=== PATIENT | male | born 1995 | race African-American/Black ===

== ENCOUNTER 2017-02-16 00:22 | Emergency (ER) | payer OTHER ==
[~2017-02-16 00:22] MED LIST: RISP37.5P IM
[2017-02-16 00:23] VITALS: BP 142/80; PULSE 90; RESP 16; TEMP 97.7; O2SAT 98
--- NOTE | 2017-02-16 03:29 | PD ---
HPI Chief Complaint: Psychiatric Symptoms Time Seen by Provider: 03:29 Travel History International Travel<30 days: No Contact w/Intl Traveler<30days: No Traveled to known affect area: No History of Present Illness HPI 21-year-old male with history of bipolar disorder and he believes schizoaffective disorder presents to the emergency department for evaluation. Patient states that he is here "for my three-day evaluation." When asked what type of evaluation, the patient states "for my bipolarness." Patient states he has been faithfully receiving his biweekly injections for his bipolar. He denies any suicidal or homicidal ideations. Denies any acute medical needs. Patient has no other symptoms to report. PFSH Past Medical History ADHD: Yes Bipolar Disorder: Yes Weight (Kg): 3 Cancer: No Cardiovascular Problems: No Diabetes: No Diminished Hearing: No Headaches: No Psychiatric: Yes Immunizations Current: Yes Schizophrenia: Yes Seizures: No Tetanus Vaccination: Unknown Influenza Vaccination: No Past Surgical History Surgical History: No Previous Surgery Section: No Social History Alcohol Use: Yes (OCCASIONAL) Tobacco Use: Yes (OCCASIONAL) Substance Use: Yes Allergies-Medications (Allergen,Severity, Reaction): Coded Allergies: No Known Allergies (Verified , 02/16/17) Reported Meds & Prescriptions Reported Meds & Active Scripts Active Risperdal Consta Inj (Risperidone) 37.5 Mg Inj 37.5 Mg IM Q14D Review of Systems Except as stated in HPI: all other systems reviewed are Neg Physical Exam Narrative GENERAL: Well-nourished, well-developed patient, ambulatory and in no acute distress SKIN: Focused skin assessment warm/dry. HEAD: Normocephalic. EYES: No scleral icterus. No injection or drainage. NECK: Supple, trachea midline. No JVD or lymphadenopathy. CARDIOVASCULAR: Regular rate and rhythm without murmurs, gallops, or rubs. RESPIRATORY: Breath sounds equal bilaterally. No accessory muscle use. GASTROINTESTINAL: Abdomen soft, non-tender, nondistended. MUSCULOSKELETAL: No cyanosis, or edema. BACK: Nontender without obvious deformity. No CVA tenderness. Data Data Last Documented VS Vital Signs Date Time Temp Pulse Resp B/P Pulse Ox O2 Delivery O2 Flow Rate FiO2 02/16/17 02:43 20 02/16/17 00:23 97.7 90 142/80 98 Room Air Orders Psych Screen (02/16/17 02:37) [facility] Medical Decision Making Medical Screen Exam Complete: Yes Emergency Medical Condition: Yes Medical Record Reviewed: Yes Differential Diagnosis Mood disorder versus personality disorder versus adjustment reaction disorder versus normal exam Narrative Course 21-year-old male presents to the emergency department requesting his 3 day evaluation for his psychiatric illness. Patient denies suicidal or homicidal ideations. He appears well and without distress. Psych Screen is ordered however labs will be ordered at this time. Patient is medically cleared to undergo psych screen for further evaluation and disposition. Diagnosis Primary Impression: Mood disorder Condition: Stable Marly Myers February 16, 2017 03:29
[2017-02-16 06:01] VITALS: BP 128/75; PULSE 75; RESP 18; O2SAT 97
[2017-02-16 10:07] VITALS: BP 128/75; PULSE 75; RESP 18; O2SAT 97
[2017-02-25] MEDS ORDERED: RISP37.5P IM ×2 (09:25→09:26)
[2017-03-11] MEDS ORDERED: RISP37.5P IM ×2 (08:59→11:34)
[2017-03-26] MEDS ORDERED: RISP37.5P IM (08:22)
== END 2017-02-16 11:50 | disposition home or self-care (01) ==
LOC: NEPD 00:22 → NEPJ 11:50
DX: F39 Unspecified mood [affective] disorder (principal); Z72.0 Tobacco use
CPT/HCPCS: 99283

== ENCOUNTER 2018-06-29 14:24 | Inpatient (IN) ==
--- NOTE | 2018-06-29 15:27 | ED ---
HPI General Chief Complaint: Psychiatric Symptoms Stated Complaint: Psych eval Time Seen by Provider: 06/30/18 12:00 Source: patient Mode of arrival: ambulatory Limitations: other (Hallucinations) History of Present Illness HPI Narrative: TP is a 23 year old male who is here today in psychiatric area of ER by himself. He was (possibly) brought in by a friend. He is awake and alert, but unable to really understand what he is saying. He'll look at me and speak, but it does not make sense. Just states "I have someone bad in my head and I need to get him out". Will not say if suicidal or homicidal. MD complaint: altered mental status (Hallucinations) Onset (ago): unknown History of same: Yes Relieving factors: medication Exacerbating factors: none Context: other (Unknown) Treatments prior to arrival: none Related Data Home Medications Medication Instructions Recorded Confirmed risperidone microspheres 37.5 mg IM Q2W 06/29/18 06/29/18 [Risperdal Consta] Allergies Allergy/AdvReac Type Severity Reaction Status Date / Time No Known Allergies AdvReac Unknown Uncoded 10/19/17 13:09 Review of Systems ROS Unobtainable ROS Unobtainable: unobtainable due to mental condition PMFSH Social History Social History Substance History: Active Abuse Second Hand Smoke Exposure: No Smoking Status: Never smoker How Often Do You Have a Drink Containing Alcohol: Never Recent Travel in [facility] within the Last 8 Weeks: No Recent Out of Country Travel within the Last 8 Weeks: No Exam Narrative Exam Narrative: GENERAL: Pt awake, alert, disoriented. Speech somewhat garbled, but able to understand somewhat. SKIN: Focused skin assessment warm/dry. Bandaide on bridge of nose. HEAD: Atraumatic. Normocephalic. EYES: Pupils equal and round. No scleral icterus. No injection or drainage. ENT: No nasal bleeding or discharge. Mucous membranes pink and moist. NECK: Trachea midline. No JVD. CARDIOVASCULAR: Regular rate and rhythm. No murmur appreciated. RESPIRATORY: No accessory muscle use. Clear to auscultation. Breath sounds equal bilaterally. GASTROINTESTINAL: Abdomen soft, non-tender, nondistended. Hepatic and splenic margins not palpable. MUSCULOSKELETAL: No obvious deformities. No clubbing. No cyanosis. No edema. NEUROLOGICAL: Awake and alert. No obvious cranial nerve deficits. Motor grossly within normal limits. Normal speech. PSYCHIATRIC: Appropriate mood and affect; insight and judgment normal. Course Initial Documented Vital Signs Temperature 98.1 F 06/29/18 14:32 Pulse Rate 109 H 06/29/18 14:32 Respiratory Rate 16 06/29/18 14:32 Blood Pressure 172/107 H 06/29/18 14:32 Pulse Oximetry 99 06/29/18 14:32 Last Documented Vital Signs Temperature 98 F 07/03/18 06:50 Pulse Rate 75 07/03/18 06:50 Respiratory Rate 16 07/03/18 06:50 Blood Pressure 110/56 L 07/03/18 06:50 Pulse Oximetry 97 07/03/18 06:50 Medical Decision Making MDM Narrative Medical decision making narrative: Patient here today for hallucinations. He states he has been getting injections but unable to find record of this. He will look at me and try to speak but is difficult to understand what he is saying. He did say that he has something bad in his head and he needs to have it. Will not say if he is suicidal or homicidal at this time. Will order psychiatric screening and lab work. UA (+) for THC, (+) protein, (+) ketones, (+) mucus, but otherwise negative for uti 1800-Pt becoming agitated and combative, hyperfocused on going home. Injections of Benadryl 50mg, Ativan 2mg, and Zyprexa 10mg IM given to patient. 1830-Pt much more calm and less agitated, he ate dinner and states hes aware he needs to be here and to stay for now until he can be seen by psych. Medical Screen Exam Complete: Yes Emergency Medical Condition: Yes Differential Diagnosis Differential Diagnosis: Suicidal ideation, homicidal ideation, Schizophrenia, hallucinations Lab Data Lab results reviewed: Yes I reviewed the patient's lab results. Result diagrams: 07/02/18 08:09 07/02/18 08:09 Lab Results 06/29/18 06/29/18 06/29/18 Range/Units 15:10 15:10 20:15 WBC 11.3 H (4.0-11.0) th/mm3 RBC 4.64 (4.50-5.90) mil/mm3 Hgb 14.1 (13.0-17.0) gm/dL Hct 41.3 (39.0-51.0) % MCV 89.0 (80.0-100.0) fL MCH 30.4 (27.0-34.0) pg MCHC 34.1 (32.0-36.0) % RDW 12.7 (11.6-17.2) % Plt Count 240 (150-450) th/mm3 MPV 9.0 (7.0-11.0) fL Neut % (Auto) 68.4 (16.0-70.0) % Lymph % (Auto) 19.7 (9.0-44.0) % [place] % (Auto) 8.8 H (0.0-8.0) % Eos % (Auto) 2.6 (0.0-4.0) % Baso % (Auto) 0.5 (0.0-2.0) % Neut # (Auto) 7.8 H (1.8-7.7) th/mm3 Lymph # (Auto) 2.2 (1.0-4.8) th/mm3 [place] # (Auto) 1.0 H (0.0-0.9) th/mm3 Eos # (Auto) 0.3 (0.0-0.4) th/mm3 Baso # (Auto) 0.1 (0.0-0.2) th/mm3 WBC Differential . Differential Comment Auto diff final Sodium (136-145) meq/L Potassium (3.5-5.1) meq/L Chloride (98-107) meq/L Carbon Dioxide (21.0-32.0) meq/L Anion Gap (5-15) meq/L BUN (7-18) mg/dL Creatinine (0.60-1.30) mg/dL Estimated GFR (>89) mL/min Random Glucose (74-106) mg/dL Hemoglobin A1c (4.3-6.0) % Calcium (8.5-10.1) mg/dL Magnesium (1.5-2.5) mg/dL Total Bilirubin (0.2-1.0) mg/dL AST (15-37) U/L ALT (12-78) U/L Alkaline Phosphatase (45-117) U/L Total Protein (6.4-8.2) g/dL Albumin (3.4-5.0) g/dL Triglycerides (42-150) mg/dL Cholesterol (120-200) mg/dL LDL Cholesterol, Calc (0-99) mg/dL HDL Cholesterol (40.0-60.0) mg/dL Cholesterol/HDL Ratio Ratio TSH (0.358-3.740) uIU/mL Urine Color Yellow (Yellw/Straw) Urine Clarity Hazy H (Clear) Urine pH 5.0 (5.0-8.5) Ur Specific [place] 1.031 (1.002-1.035) Urine Protein 30 H (Neg-Trace) mg/dL Urine Glucose (UA) Negative (Negative) mg/dL Urine Ketones Trace H (Negative) mg/dL Urine Occult Blood Negative (Negative) Urine Nitrate Negative (Negative) Urine Bilirubin Negative (Negative) Urine Urobilinogen 2.0 H (Less than 2) mg/dL Ur Leukocyte Esterase Negative (Negative) Urine WBC Less than 1 (0-5) /hpf Ur Squamous Epith Cells <1 (0-5) /hpf Hyaline Casts 4 (0-3) /lpf Urine Mucus Few H (Occasional) /lpf Micro UA Comment Culture not ind Ur Microscopic Review Not Reportable Urine Culture Comments Culture not ind Urine Opiates Screen Neg (Neg) Ur Barbiturates Screen Neg (Neg) Ur Amphetamines Screen Neg (Neg) U Benzodiazepines Scrn Neg (Neg) Urine Cocaine Screen Neg (Neg) U Cannabinoids Screen Pos H (Neg) Serum Alcohol (0-5) mg/dL 06/29/18 07/02/18 07/02/18 Range/Units 20:15 08:09 08:09 WBC 6.6 (4.0-11.0) th/mm3 RBC 4.75 (4.50-5.90) mil/mm3 Hgb 14.6 (13.0-17.0) gm/dL Hct 43.4 (39.0-51.0) % MCV 91.3 (80.0-100.0) fL MCH 30.7 (27.0-34.0) pg MCHC 33.6 (32.0-36.0) % RDW 13.1 (11.6-17.2) % Plt Count 247 (150-450) th/mm3 MPV 8.4 (7.0-11.0) fL Neut % (Auto) 68.4 (16.0-70.0) % Lymph % (Auto) 22.7 (9.0-44.0) % [place] % (Auto) 5.9 (0.0-8.0) % Eos % (Auto) 2.4 (0.0-4.0) % Baso % (Auto) 0.6 (0.0-2.0) % Neut # (Auto) 4.5 (1.8-7.7) th/mm3 Lymph # (Auto) 1.5 (1.0-4.8) th/mm3 [place] # (Auto) 0.4 (0.0-0.9) th/mm3 Eos # (Auto) 0.2 (0.0-0.4) th/mm3 Baso # (Auto) 0.0 (0.0-0.2) th/mm3 WBC Differential . Differential Comment Auto diff final Sodium 139 (136-145) meq/L Potassium 3.3 L (3.5-5.1) meq/L Chloride 102 (98-107) meq/L Carbon Dioxide 27.0 (21.0-32.0) meq/L Anion Gap 10 (5-15) meq/L BUN 16 (7-18) mg/dL Creatinine 1.14 (0.60-1.30) mg/dL Estimated GFR Greater than 89 (>89) mL/min Random Glucose 99 (74-106) mg/dL Hemoglobin A1c 5.6 (4.3-6.0) % Calcium 9.2 (8.5-10.1) mg/dL Magnesium (1.5-2.5) mg/dL Total Bilirubin 0.5 (0.2-1.0) mg/dL AST 86 H (15-37) U/L ALT 66 (12-78) U/L Alkaline Phosphatase 77 (45-117) U/L Total Protein 7.6 (6.4-8.2) g/dL Albumin 3.7 (3.4-5.0) g/dL Triglycerides (42-150) mg/dL Cholesterol (120-200) mg/dL LDL Cholesterol, Calc (0-99) mg/dL HDL Cholesterol (40.0-60.0) mg/dL Cholesterol/HDL Ratio Ratio TSH 0.581 (0.358-3.740) uIU/mL Urine Color (Yellw/Straw) Urine Clarity (Clear) Urine pH (5.0-8.5) Ur Specific [place] (1.002-1.035) Urine Protein (Neg-Trace) mg/dL Urine Glucose (UA) (Negative) mg/dL Urine Ketones (Negative) mg/dL Urine Occult Blood (Negative) Urine Nitrate (Negative) Urine Bilirubin (Negative) Urine Urobilinogen (Less than 2) mg/dL Ur Leukocyte Esterase (Negative) Urine WBC (0-5) /hpf Ur Squamous Epith Cells (0-5) /hpf Hyaline Casts (0-3) /lpf Urine Mucus (Occasional) /lpf Micro UA Comment Ur Microscopic Review Urine Culture Comments Urine Opiates Screen (Neg) Ur Barbiturates Screen (Neg) Ur Amphetamines Screen (Neg) U Benzodiazepines Scrn (Neg) Urine Cocaine Screen (Neg) U Cannabinoids Screen (Neg) Serum Alcohol Less than 3 (0-5) mg/dL 07/02/18 Range/Units 08:09 WBC (4.0-11.0) th/mm3 RBC (4.50-5.90) mil/mm3 Hgb (13.0-17.0) gm/dL Hct (39.0-51.0) % MCV (80.0-100.0) fL MCH (27.0-34.0) pg MCHC (32.0-36.0) % RDW (11.6-17.2) % Plt Count (150-450) th/mm3 MPV (7.0-11.0) fL Neut % (Auto) (16.0-70.0) % Lymph % (Auto) (9.0-44.0) % [place] % (Auto) (0.0-8.0) % Eos % (Auto) (0.0-4.0) % Baso % (Auto) (0.0-2.0) % Neut # (Auto) (1.8-7.7) th/mm3 Lymph # (Auto) (1.0-4.8) th/mm3 [place] # (Auto) (0.0-0.9) th/mm3 Eos # (Auto) (0.0-0.4) th/mm3 Baso # (Auto) (0.0-0.2) th/mm3 WBC Differential Differential Comment Sodium 139 (136-145) meq/L Potassium 3.8 (3.5-5.1) meq/L Chloride 104 (98-107) meq/L Carbon Dioxide 27.4 (21.0-32.0) meq/L Anion Gap 8 (5-15) meq/L BUN 12 (7-18) mg/dL Creatinine 1.07 (0.60-1.30) mg/dL Estimated GFR Greater than 89 (>89) mL/min Random Glucose 112 H (74-106) mg/dL Hemoglobin A1c (4.3-6.0) % Calcium 9.1 (8.5-10.1) mg/dL Magnesium 2.3 (1.5-2.5) mg/dL Total Bilirubin (0.2-1.0) mg/dL AST (15-37) U/L ALT (12-78) U/L Alkaline Phosphatase (45-117) U/L Total Protein (6.4-8.2) g/dL Albumin (3.4-5.0) g/dL Triglycerides 57 (42-150) mg/dL Cholesterol 91 L (120-200) mg/dL LDL Cholesterol, Calc 49 (0-99) mg/dL HDL Cholesterol 30.4 L (40.0-60.0) mg/dL Cholesterol/HDL Ratio 2.99 Ratio TSH (0.358-3.740) uIU/mL Urine Color (Yellw/Straw) Urine Clarity (Clear) Urine pH (5.0-8.5) Ur Specific [place] (1.002-1.035) Urine Protein (Neg-Trace) mg/dL Urine Glucose (UA) (Negative) mg/dL Urine Ketones (Negative) mg/dL Urine Occult Blood (Negative) Urine Nitrate (Negative) Urine Bilirubin (Negative) Urine Urobilinogen (Less than 2) mg/dL Ur Leukocyte Esterase (Negative) Urine WBC (0-5) /hpf Ur Squamous Epith Cells (0-5) /hpf Hyaline Casts (0-3) /lpf Urine Mucus (Occasional) /lpf Micro UA Comment Ur Microscopic Review Urine Culture Comments Urine Opiates Screen (Neg) Ur Barbiturates Screen (Neg) Ur Amphetamines Screen (Neg) U Benzodiazepines Scrn (Neg) Urine Cocaine Screen (Neg) U Cannabinoids Screen (Neg) Serum Alcohol (0-5) mg/dL Discharge Plan Discharge Disposition Patient Disposition: 01 Discharge Home Discharge Order Discharge Orders: Discharge Order (Routine); Ordered 07/03/18 Ordered By: Angelique Aguirre Physicians Team ED Provider: Jim Velasquez ED Midlevel Provider: Angelique Aguirre Primary Care Provider: Primary Care Donna Lewis Attending Provider: Carlton Cornejo Other Providers: Xu Beaver Discharge Interventions Interventions: ED Discharge Assessment Last Done: 06/30/18 14:25 Vital Signs Last Done: 06/30/18 06:46 Status ED Status: Left Department Discharge Information Discharge Date/Time: 06/30/18 14:26
[2018-06-29 17:18] LABS: Bilirubin,Urine Negative (Negative); Clarity,Urine Hazy (Clear); Color,Urine Yellow (Yellw/Straw); Glucose,Urine (UA) Negative (Negative); Hyaline Casts,Urine 4 /lpf (0-3); Leukocyte Esterase,Urine Negative (Negative); Mucus,Urine Few /lpf (Occasional); Nitrite,Urine Negative (Negative); Specific Gravity,Urine 1.031 (1.002-1.035); Squamous Epithelial Cell,Urine <1 /hpf (0-5)
[2018-06-29 17:23] LABS: Amphetamine Screen,Urine Neg (Neg); Barbiturate Screen,Urine Neg (Neg); Cannabinoid Screen,Urine Pos (Neg); Cocaine Screen,Urine Neg (Neg)
[2018-06-29 17:28] LABS: Opiate Screen,Urine Neg (Neg)
[2018-06-29 21:27] LABS: Baso # (Auto) 0.1 th/mm3 (0.0-0.2); Baso % (Auto) 0.5 % (0.0-2.0); Eos # (Auto) 0.3 th/mm3 (0.0-0.4); Eos % (Auto) 2.6 % (0.0-4.0); Hematocrit 41.3 % (39.0-51.0); Hemoglobin 14.1 gm/dL (13.0-17.0); Lymph # (Auto) 2.2 th/mm3 (1.0-4.8); Lymph % (Auto) 19.7 % (9.0-44.0); Mean Corpuscular HGB Conc 34.1 % (32.0-36.0); Mean Corpuscular Hemoglobin 30.4 pg (27.0-34.0); Mono % (Auto) 8.8 % (0.0-8.0); Neut # (Auto) 7.8 th/mm3 (1.8-7.7); Neut % (Auto) 68.4 % (16.0-70.0); Platelet Count 240 th/mm3 (150-450); Red Blood Count 4.64 mil/mm3 (4.50-5.90); Red Cell Distribution Width 12.7 % (11.6-17.2); White Blood Count 11.3 th/mm3 (4.0-11.0)
[2018-06-29 21:49] LABS: Albumin 3.7 g/dL (3.4-5.0); Anion Gap 10 meq/L (5-15); Aspartate Aminotransferase 86 U/L (15-37); Blood Urea Nitrogen 16 mg/dL (7-18); Calcium 9.2 mg/dL (8.5-10.1); Chloride 102 meq/L (98-107); Glomerular Filtration Rate Greater Than 89 mL/min (>89); Glucose,Random 99 mg/dL (74-106); Potassium 3.3 meq/L (3.5-5.1); Sodium 139 meq/L (136-145)
[2018-06-29 22:00] LABS: Alanine Aminotransferase 66 U/L (12-78); Alkaline Phosphatase 77 U/L (45-117); Thyroid Stimulating Hormone 0.581 uIU/mL (0.358-3.740); Total Protein 7.6 g/dL (6.4-8.2)
--- NOTE | 2018-06-30 12:18 | ED ---
HPI - Psych - General Source: patient, family, RN notes reviewed, old records reviewed Mode of arrival: ambulatory Limitations: no limitations - History of Present Illness MD complaint: other Onset (ago): day(s) Duration: constant History of same: Yes Relieving factors: none, medication Exacerbating factors: none Context: recent drug abuse Associated psychiatric symptoms: auditory hallucinations, other Associated symptoms: denies other symptoms Treatments prior to arrival: none - General Chief Complaint: Psychiatric Symptoms Stated Complaint: Psych eval Time Seen by Provider: 06/30/18 12:00 - History of Present Illness HPI Narrative: History of Present Illness HPI Narrative: Patient is a 23 year old, single, male, lives with his parents, unemployed. with history of Schizophrenia, Mood DO, who initially presented to the ED on a voluntary basis, possibly brought in by a friend according to the ED documentation. The ED provider describes patient as " awake and alert, but unable to really understand what he is saying, not making any sense. He stated I have someone bad in my head and I need to get him out." The patient did not provide any other history. The patient's father and mother contacted our emergency department and they reported that they were very concerned for their son because" he has been acting violent, hearing voices , stripping and pacing." He received his Risperdal injection on Thursday but the father and mother both believe that the medicine is not working. EMR reviewed. The patient was last psychiatrically admitted in October 2015 with a diagnosis of brief psychotic disorder. He is followed on an outpatient basis by at [facility]. He is on injectable medication and is reported to have received his last injection on Thursday. Patient's current toxicology is positive for cannabinoids. As per nurse's report the patient has been acting in a strange matter and has been putting paper inside of his nose. Patient is seen. He is alert and oriented. Decrease amount of eye contact. Affect is blunted. He speaks in a very soft voice and very difficult to understand. He has tangential speech. He does admit that he has been getting mad at times and states that he is here because "the house did not like me". He goes on to state that he does not believe that the people that call themselves his parents are in reality his parents. He denies any hallucinations. Denies suicidal or homicidal ideation, intent or plan. (Abida Funes) - Related Data Home Medications Medication Instructions Recorded Confirmed risperidone microspheres 37.5 mg IM Q2W 06/29/18 06/29/18 [Risperdal Consta] Allergies Allergy/AdvReac Type Severity Reaction Status Date / Time No Known Allergies AdvReac Unknown Uncoded 10/19/17 13:09 [facility] - History History Provided By: Patient - Medical History Medical History: Medical History (Last Updated 06/29/18 @ 15:38 by Cody Meneses RN) Bipolar disorder Schizophrenia - Surgical History Surgical History: Surgical History (Last Updated 06/29/18 @ 15:38 by Cody Meneses RN) No history of previous surgery - Social History I have reviewed the patient's Social History: Yes - Tobacco History Smoking Status: Never smoker - Alcohol History How Often Do You Have a Drink Containing Alcohol: Never - Substance Use History Substance History: Active Abuse - Substance Use Type Marijuana Status: Active Route Used: By Mouth Comment: Pt states he smokes a little weed - Travel History Recent Travel in the [facility] Within the Last 8 Weeks: No Recent Travel Out of the Country Within the Last 8 Weeks: No - Immunization History Tetanus Immunization: <5 Years Hx Influenza Vaccine This Season: No Psychiatric History - Psychiatric History Psychiatric Treatment History: History of Psychiatric Treatment, History Substance Abuse Treatment, History of Hospitalization in a Psychiatric Facility History of Inpatient Treatment: Yes Firearms in Home: No - Psychiatric History Patient has been receiving psychiatric treatment for several years. He has been admitted to [facility] as well as our adult inpatient psychiatric unit. His outpatient psychiatrist is Dr. Barrera. (Abida Funes) - Family Psychiatric History None (Abida Funes) Physical Exam - General Limitations: other (Hallucinations) Mental Status Examination Consciousness: Alert Orientation: x4 Motor Activity: Normal gait Speech: Rapid Language: Adequate Fund of Knowledge: Inadequate Attention and Concentration: Inadequate Memory: Unremarkable Mood: Anxious Affect: Blunt Thought Process & Associations: Loose associations Thought Content: Bizarre thinking, Delusional Hallucination Type: None Delusion Type: Paranoid, Other (That his parents are not who they say they are) Suicidal Ideation: No Suicidal Plan: No Suicidal Intention: No Homicidal Ideation: No Homicidal Plan: No Homicidal Intention: No Insight: Poor Judgment: Poor Initial Documented Vital Signs Temperature 98.1 F 06/29/18 14:32 Pulse Rate 109 H 06/29/18 14:32 Respiratory Rate 16 06/29/18 14:32 Blood Pressure 172/107 H 06/29/18 14:32 Pulse Oximetry 99 06/29/18 14:32 Last Documented Vital Signs Temperature 98.1 F 06/29/18 14:32 Pulse Rate 86 06/30/18 06:46 Respiratory Rate 18 06/30/18 06:46 Blood Pressure 161/93 H 06/30/18 06:46 Pulse Oximetry 98 06/30/18 06:46 MDM - Psych - Diagnosis (1) Schizophrenia Status: Acute - Lab Data Result diagrams: 06/29/18 20:15 06/29/18 20:15 - MDM Narrative Medical decision making narrative: At this time the patient meets criteria for inpatient psychiatric treatment due to concerns over his recent change in behaviors including increase in aggression , impaired sleep, taking his clothes off, responding to internal stimuli. His family members report that they are concerned over there is safety due to his alleged increase in agitation as well as being concerned that his current psychiatric medications are not working despite compliance. The patient does not consent to voluntary admission and it is my opinion that he meets criteria for involuntary status and therefore he was placed under such. Admit to inpatient psychiatry for further evaluation, stabilization, safety and medication adjustment. (Abida Funes) - Lab Data Lab Results 06/29/18 06/29/18 06/29/18 Range/Units 15:10 15:10 20:15 WBC 11.3 H (4.0-11.0) th/mm3 RBC 4.64 (4.50-5.90) mil/mm3 Hgb 14.1 (13.0-17.0) gm/dL Hct 41.3 (39.0-51.0) % MCV 89.0 (80.0-100.0) fL MCH 30.4 (27.0-34.0) pg MCHC 34.1 (32.0-36.0) % RDW 12.7 (11.6-17.2) % Plt Count 240 (150-450) th/mm3 MPV 9.0 (7.0-11.0) fL Neut % (Auto) 68.4 (16.0-70.0) % Lymph % (Auto) 19.7 (9.0-44.0) % Ju[place] % (Auto) 8.8 H (0.0-8.0) % Eos % (Auto) 2.6 (0.0-4.0) % Baso % (Auto) 0.5 (0.0-2.0) % Neut # (Auto) 7.8 H (1.8-7.7) th/mm3 Lymph # (Auto) 2.2 (1.0-4.8) th/mm3 [place] # (Auto) 1.0 H (0.0-0.9) th/mm3 Eos # (Auto) 0.3 (0.0-0.4) th/mm3 Baso # (Auto) 0.1 (0.0-0.2) th/mm3 WBC Differential . Differential Comment Auto diff final Sodium (136-145) meq/L Potassium (3.5-5.1) meq/L Chloride (98-107) meq/L Carbon Dioxide (21.0-32.0) meq/L Anion Gap (5-15) meq/L BUN (7-18) mg/dL Creatinine (0.60-1.30) mg/dL Estimated GFR (>89) mL/min Random Glucose (74-106) mg/dL Calcium (8.5-10.1) mg/dL Total Bilirubin (0.2-1.0) mg/dL AST (15-37) U/L ALT (12-78) U/L Alkaline Phosphatase (45-117) U/L Total Protein (6.4-8.2) g/dL Albumin (3.4-5.0) g/dL TSH (0.358-3.740) uIU/mL Urine Color Yellow (Yellw/Straw) Urine Clarity Hazy H (Clear) Urine pH 5.0 (5.0-8.5) Ur Specific [place] 1.031 (1.002-1.035) Urine Protein 30 H (Neg-Trace) mg/dL Urine Glucose (UA) Negative (Negative) mg/dL Urine Ketones Trace H (Negative) mg/dL Urine Occult Blood Negative (Negative) Urine Nitrate Negative (Negative) Urine Bilirubin Negative (Negative) Urine Urobilinogen 2.0 H (Less than 2) mg/dL Ur Leukocyte Esterase Negative (Negative) Urine WBC Less than 1 (0-5) /hpf Ur Squamous Epith Cells <1 (0-5) /hpf Hyaline Casts 4 (0-3) /lpf Urine Mucus Few H (Occasional) /lpf Micro UA Comment Culture not ind Ur Microscopic Review Not Reportable Urine Culture Comments Culture not ind Urine Opiates Screen Neg (Neg) Ur Barbiturates Screen Neg (Neg) Ur Amphetamines Screen Neg (Neg) U Benzodiazepines Scrn Neg (Neg) Urine Cocaine Screen Neg (Neg) U Cannabinoids Screen Pos H (Neg) Serum Alcohol (0-5) mg/dL 06/29/18 Range/Units 20:15 WBC (4.0-11.0) th/mm3 RBC (4.50-5.90) mil/mm3 Hgb (13.0-17.0) gm/dL Hct (39.0-51.0) % MCV (80.0-100.0) fL MCH (27.0-34.0) pg MCHC (32.0-36.0) % RDW (11.6-17.2) % Plt Count (150-450) th/mm3 MPV (7.0-11.0) fL Neut % (Auto) (16.0-70.0) % Lymph % (Auto) (9.0-44.0) % Juab % (Auto) (0.0-8.0) % Eos % (Auto) (0.0-4.0) % Baso % (Auto) (0.0-2.0) % Neut # (Auto) (1.8-7.7) th/mm3 Lymph # (Auto) (1.0-4.8) th/mm3 [place] # (Auto) (0.0-0.9) th/mm3 Eos # (Auto) (0.0-0.4) th/mm3 Baso # (Auto) (0.0-0.2) th/mm3 WBC Differential Differential Comment Sodium 139 (136-145) meq/L Potassium 3.3 L (3.5-5.1) meq/L Chloride 102 (98-107) meq/L Carbon Dioxide 27.0 (21.0-32.0) meq/L Anion Gap 10 (5-15) meq/L BUN 16 (7-18) mg/dL Creatinine 1.14 (0.60-1.30) mg/dL Estimated GFR Greater than 89 (>89) mL/min Random Glucose 99 (74-106) mg/dL Calcium 9.2 (8.5-10.1) mg/dL Total Bilirubin 0.5 (0.2-1.0) mg/dL AST 86 H (15-37) U/L ALT 66 (12-78) U/L Alkaline Phosphatase 77 (45-117) U/L Total Protein 7.6 (6.4-8.2) g/dL Albumin 3.7 (3.4-5.0) g/dL TSH 0.581 (0.358-3.740) uIU/mL Urine Color (Yellw/Straw) Urine Clarity (Clear) Urine pH (5.0-8.5) Ur Specific [place] (1.002-1.035) Urine Protein (Neg-Trace) mg/dL Urine Glucose (UA) (Negative) mg/dL Urine Ketones (Negative) mg/dL Urine Occult Blood (Negative) Urine Nitrate (Negative) Urine Bilirubin (Negative) Urine Urobilinogen (Less than 2) mg/dL Ur Leukocyte Esterase (Negative) Urine WBC (0-5) /hpf Ur Squamous Epith Cells (0-5) /hpf Hyaline Casts (0-3) /lpf Urine Mucus (Occasional) /lpf Micro UA Comment Ur Microscopic Review Urine Culture Comments Urine Opiates Screen (Neg) Ur Barbiturates Screen (Neg) Ur Amphetamines Screen (Neg) U Benzodiazepines Scrn (Neg) Urine Cocaine Screen (Neg) U Cannabinoids Screen (Neg) Serum Alcohol Less than 3 (0-5) mg/dL
[2018-06-30] MEDS ORDERED: Haloperidol Inj 5 MG/ML Ampul IM PRN (12:31)
[2018-06-30] MEDS ORDERED: Bisacodyl 10 MG Supp RECTAL PRN (12:31)
[2018-06-30] MEDS ORDERED: Aluminum/Magnesium/Simethacone Susp 30 ML UDC PO PRN (12:31)
--- NOTE | 2018-07-01 12:23 | P.HPPSY ---
Provisional Diagnosis Admission Date: June 30, 2018 12:35 [place].: 1. Schizophrenia, paranoid type, acute exacerbation 2. Cannabis abuse [place] II.: Deferred Competence Certification of Person's Competence To Provide Express and Informed Consent I have personally examined Branden Clark, a person being served at [facility] on, July 01, 2018 1223. Express and informed consent means consent voluntarily given in writing, by a competent person, after sufficient explanation and disclosure of the subject matter involved to enable the person to make a knowing and willful decision without any element of force, fraud, deceit, duress, or other form of constraint or coercion. This person is 18 years of age or older, is not now known to be incompetent to consent to treatment with a guardian advocate, and does not have a health care surrogate or proxy currently making medical treatment decisions. I have found this person to be one of the following: [] Competent to provide express and informed consent, as defined above, for voluntary admission to this facility and is competent to provide express and informed consent for treatment. He/she has the consistent capacity to make well reasoned, willful, and knowing decisions concerning his or her medical or mental health treatment. The person fully and consistently understands the purpose of the admission for examination/placement and is fully capable of personally exercising all rights assured [place] [X] Incompetent to provide express and informed consent to voluntary admission, and this is incompetent to provide express and informed consent to treatment. The person must be transferred to involuntary status and a petition for a guardian advocate filed with the Circuit Court. [] Refusing to provide express and informed consent to voluntary admission but is competent to provide express and informed consent for treatment. The person must be discharged or transferred to involuntary status. Form shall be completed within 24 hours of a person's arrival at the receiving facility and filed in the clinical record of each person: 1. Admitted on a voluntary basis 2. Permitted to provide express and informed consent to his/her own treatment 3. Allowed to transfer from involuntary to voluntary status 4. Prior to permitting a person to consent to his or her own treatment after having been previously found incompetent to consent to treatment. History of Present Illness Capacity: Lacks capacity Chief Complaint: Psychosis History of Present Illness: Mr. Clark is a 23-year-old male with a history of psychotic illness who presented to the emergency department voluntarily for psychiatric evaluation. Patient was evaluated by the psychiatric nurse practitioner who obtained collateral information from the patient's parents. Patient was placed under the Trim[place] act in the ED and admitted to the inpatient psychiatric unit for further stabilization. Reviewing the electronic medical record, I note the patient's most recent psychiatric hospitalization was under my care in 2015. He continued to see Dr. Barrera on an outpatient basis until at least September of this year and was on Risperdal Consta 37.5 mg IM at that time. Patient seen and examined with nurse. Chart reviewed. Case discussed with nursing staff. On my examination, patient presents as guarded and internally stimulated. He articulates a Capgras delusion regarding his parents. He also says "I can barely hear and see. I already." He is paranoid and believes people are talking about him. He believes that he is receiving threats through the TV. No affective symptoms. He is somewhat disheveled and his thought process is tangential. He does not verbalize any SI or HI. Psychiatric interview is somewhat limited because of the patient's degree of psychiatric impairment. No acute physical complaints. Following my departure from the unit, I was notified by the nurse that the patient was growing increasingly agitated and reportedly spit in the nurse's face. I have ordered patient medicated with Haldol, Ativan and Benadryl ETO. Past psychiatric history: The patient reports a history of schizophrenia/ bipolar disorder. He reportedly gets his outpatient psychiatric care through [facility]. Per the psychiatric nurse practitioner's notes he just recently received his Risperdal Consta booster. Most recent psychiatric admission was reportedly here at [place]. He denies a history of suicide attempts. Family history: The patient denies any family history of mental illness. Chemical dependency history: The patient reports that he smokes one half a pack a day of cigarettes. He also occasionally uses cannabis. He denies any abuse of cocaine, benzodiazepines or other substances. Social history: The patient resides with his family. He says "I thought they were my family anyway." He reports that he attends college through [employer] over the Internet. He is single with no children. He does have a pet dog by the name of Chema. He denies any history. Denies any legal history. Denies any access to guns or firearms. He is a [employer]. When I ask about a history of abuse or mistreatment he says only "I do not want to talk about it." No PTSD symptoms reported. I did endeavor to reach out to patient's father and mother at the number listed in the electronic medical record. Unfortunately, I was unable to reach them, and the voice mailbox is not presently accepting voicemails. - Inpatient Certification I certify that the inpatient services were ordered in accordance with Medicare regulations governing the order. This includes certification that hospital inpatient services are reasonable and necessary and in the case of services not specified as inpatient-only under 42 CFR 419.22(n), that they are appropriately provided as inpatient services in accordance to with the 2-midnight benchmark under 43 CFR 412.3(e) I certify that inpatient psychiatric hospital services are medically necessary. Evaluation and treatment and/or diagnostic testing are expected to improve the patient's condition. The patient needs on a daily basis, active treatment furnished directly by or requiring the supervision of inpatient psychiatric facility personnel. Estimated Total Length of Stay (Days): 10 Plans for Post Hospital Care: Home Review of Systems unobtainable due to mental condition PMFSH - History History Provided By: Patient - Medical History Medical History: Medical History (Last Updated 06/29/18 @ 15:38 by Cody Meneses RN) Bipolar disorder Schizophrenia - Surgical History Surgical History: Surgical History (Last Updated 06/29/18 @ 15:38 by Cody Meneses RN) No history of previous surgery - Tobacco History Second Hand Smoke Exposure: No Smoking Status: Never smoker - Alcohol History How Often Do You Have a Drink Containing Alcohol: Never - Substance Use History Substance History: Active Abuse - Substance Use Type Marijuana Status: Active Route Used: By Mouth Reason for Use: Get High Comment: Patient reports previous substance use, but "can't remember" any other substances he has used in the past other than marijuana. - Travel History Recent Travel in the [place] Within the Last 8 Weeks: No Recent Travel Out of the Country Within the Last 8 Weeks: No - Immunization History Tetanus Immunization: <5 Years Hx Influenza Vaccine This Season: No Quality Measures - Psychiatric History Psychological trauma history: See above - Patient Strengths Patient's strengths (minimum of 2): In a monitored setting. Verbally fluent. Medications and Allergies Active Medications: Active Medications Al Hydrox/Mg Hydrox/Simethicone (Mag-Al Plus Susp Liq) 30 ml PO Q6H PRN PRN Reason: DYSPEPSIA Al Hydroxide/Mg Hydroxide (Milk Of Magnesia Liq) 30 ml PO Q12H PRN PRN Reason: Mild Constipation Bisacodyl (Dulcolax Supp) 10 mg RECTAL DAILY PRN PRN Reason: SEVERE CONSITIPATION Haloperidol Lactate (Haldol Inj) 10 mg IM Q6H PRN PRN Reason: SEVERE AGITATION Lactulose (Lactulose Liq) 30 ml PO DAILY PRN PRN Reason: SEVERE CONSITIPATION Lorazepam (Ativan Inj) 1 mg IM Q6H PRN PRN Reason: MODERATE TO SEVERE ANXIETY Sennosides (Senokot) 17.2 mg PO Q12H PRN PRN Reason: Moderate Constipation Allergies Allergy/AdvReac Type Severity Reaction Status Date / Time No Known Allergies AdvReac Unknown Uncoded 10/19/17 13:09 Home Medications Medication Instructions Recorded Confirmed Type risperidone microspheres 37.5 mg IM Q2W 06/29/18 06/29/18 History [Risperdal Consta] Results - Labs CBC & Chem 7: 06/29/18 20:15 06/29/18 20:15 Labs: Labs reviewed. Mild leukocytosis noted without signs or symptoms of infection. Mild hypokalemia noted. Exam Vital signs: Vital Signs 06/30/18 16:38 07/01/18 05:40 Temperature 98.1 F Pulse Rate 95 H 89 Respiratory Rate 19 17 Blood Pressure 154/86 H 129/78 Pulse Oximetry 97 Intake & Output 06/30/18 07/01/18 07/01/18 18:59 06:59 18:59 Weight 97.8 kg 98.1 kg Other: Weight On Admission 97.8 kg Narrative: Physical examination completed by ED provider. On my examination today, the patient appears to be in no acute physical distress. No motor abnormalities noted. Labs and vital signs reviewed. Mental Status Examination Appearance: Disheveled Consciousness: Alert, Vigilant Orientation: Person, Place (At least) Motor Activity: Normal gait Speech: Rapid Language: Other (Rambling) Fund of Knowledge: Inadequate Attention and Concentration: Inadequate Memory: Impaired (Psychosis interferes) Mood: Anxious, Irritable Affect: Irritable, Other (Dysphoric) Thought Process & Associations: Tangential Thought Content: Hallucinations, Delusional Hallucination Type: Other (Appears internally stimulated) Delusion Type: Paranoid, Other (Capgras re: parents) Suicidal Ideation: No Homicidal Ideation: No Insight: Poor Judgment: Poor Assessment and Plan - Assessment (1) Schizophrenia Code(s): F20.9 - Schizophrenia, unspecified Status: Acute - Plan Plan: 23-year-old male with psychiatric history as detailed above who is presently admitted to the inpatient psychiatric unit under a [place] act. On my examination today, the patient presents as floridly psychotic with a Capgras delusion regarding his parents. He apparently has recently received his Risperdal Consta booster, but this medication is apparently insufficient to control his psychotic symptoms. There also may be a component of substance- induced psychosis given toxicological findings. I will plan to admit the patient to the inpatient psychiatric unit for safety, observation and stabilization. Admit inpatient. Involuntary status. I have completed first opinion. Consult for second opinion. Request healthcare surrogate and guardian advocate. Psychotropic medications remain on hold pending contact with healthcare surrogate. Once contact is made, the patient would likely benefit from augmentation with another antipsychotic agent. I will place patient on close obs and he should not have visits with parents at present given the Capgras and associated paranoia. Recheck CBC and BMP as well as magnesium in the morning. Vitals every shift. Counselor to see. Collateral information. Disposition planning. Estimated length of stay: 7-10 days. Justification for Continued Inpatient Stay: See above Discharge Planning: Pending psychiatric stabilization Request Healthcare Surrogate/Guardian Advocate?: Yes (1) Schizophrenia Qualifiers: Schizophrenia type: paranoid schizophrenia Qualified Code(s): F20.0 - Paranoid schizophrenia
[2018-07-01] MEDS ORDERED: Haloperidol Inj 5 MG/ML Ampul ONE (12:44)
[2018-07-01] MEDS ORDERED: Haloperidol Inj 5 MG/ML Ampul IM STA (12:45)
--- NOTE | 2018-07-01 15:44 | ECG ---
Date Performed: 07/01/2018 Time Performed: 10:26:06 PTAGE: 23 years EKG: Sinus rhythm MODERATE VOLTAGE CRITERIA FOR LVH, CONSIDER NORMAL VARIANT BORDERLINE ECG PREVIOUS TRACING : 10/30/2015 21.56 Since the previous tracing, no significant change noted DOCTOR: Adriana Rivas Interpretating Date/Time 07/01/2018 15:43:34
[2018-07-02 09:08] LABS: Baso % (Auto) 0.6 % (0.0-2.0); Eos # (Auto) 0.2 th/mm3 (0.0-0.4); Eos % (Auto) 2.4 % (0.0-4.0); Hematocrit 43.4 % (39.0-51.0); Hemoglobin 14.6 gm/dL (13.0-17.0); Lymph # (Auto) 1.5 th/mm3 (1.0-4.8); Lymph % (Auto) 22.7 % (9.0-44.0); Mean Corpuscular HGB Conc 33.6 % (32.0-36.0); Mean Corpuscular Hemoglobin 30.7 pg (27.0-34.0); Mean Corpuscular Volume 91.3 fL (80.0-100.0); Mean Platelet Volume 8.4 fL (7.0-11.0); Mono # (Auto) 0.4 th/mm3 (0.0-0.9); Mono % (Auto) 5.9 % (0.0-8.0); Neut # (Auto) 4.5 th/mm3 (1.8-7.7); Neut % (Auto) 68.4 % (16.0-70.0); Platelet Count 247 th/mm3 (150-450); Red Blood Count 4.75 mil/mm3 (4.50-5.90); Red Cell Distribution Width 13.1 % (11.6-17.2); White Blood Count 6.6 th/mm3 (4.0-11.0)
--- NOTE | 2018-07-02 09:12 | P.PNPSY ---
Subjective Chief Complaint: Psychosis Remarks: Patient seen and examined with counselor. Chart reviewed. Case discussed with nursing staff. On my exam, patient remains paranoid and internally stimulated. He continues to articulate Capgras delusion regarding his parents. He denies receiving any threats from the TV today. I note he has a small cut on the bridge of his nose, in retrospect present yesterday, and patient says he was scratched by his dog. No signs of infection. No side effects from medications. No physical complaints. Insight into mental illness and need for treatment remain poor, and patient remains quite discharge focused. I was able to reach patient's father, Clint today by phone. He is willing to act as HCS. He notes patient received Risperdal Consta injection this past Thursday but had begun to decompensate psychiatrically the week before. Risperdal Consta administration did not stop the decompensation. In addition to the Capgras regarding parents, Clint notes patient has been pulling his pants down on the porch, talking to himself and talking about killing people. Patient has not been sleeping well per Clint. Clint is in agreement with treatment plan as outlined below and provides consent for psychotropic medications as below. Vital Signs Temp Pulse Resp BP Pulse Ox 07/02/18 05:22 97.9 F 59 L 18 144/66 H 99 07/01/18 16:59 98.3 F 89 17 146/81 H 98 Laboratory Results - last 24 hr 07/02/18 07/02/18 08:09 08:09 WBC 6.6 RBC 4.75 Hgb 14.6 Hct 43.4 MCV 91.3 MCH 30.7 MCHC 33.6 RDW 13.1 Plt Count 247 MPV 8.4 Neut % (Auto) 68.4 Lymph % (Auto) 22.7 Alcorn % (Auto) 5.9 Eos % (Auto) 2.4 Baso % (Auto) 0.6 Neut # (Auto) 4.5 Lymph # (Auto) 1.5 Alcorn # (Auto) 0.4 Eos # (Auto) 0.2 Baso # (Auto) 0.0 WBC Differential . Differential Comment Auto diff final Sodium 139 Potassium 3.8 Chloride 104 Carbon Dioxide 27.4 Anion Gap 8 BUN 12 Creatinine 1.07 Estimated GFR Greater than 89 Random Glucose 112 H Calcium 9.1 Magnesium 2.3 Triglycerides 57 Cholesterol 91 L LDL Cholesterol, Calc 49 HDL Cholesterol 30.4 L Cholesterol/HDL Ratio 2.99 Labs reviewed. Leukocytosis has normalized. Hypokalemia resolved. EKG sinus rhythm, QTc 402ms, not prolonged. Review of Systems unobtainable due to mental condition Mental Status Examination Appearance: Disheveled Consciousness: Alert, Vigilant Orientation: Person, Place (At least) Motor Activity: Normal gait, Other (No motor abnormalities noted) Speech: Rapid Language: Other (Rambling) Fund of Knowledge: Inadequate Attention and Concentration: Inadequate Memory: Impaired (Psychosis interferes) Mood: Anxious Affect: Flat Thought Process & Associations: Tangential Thought Content: Hallucinations, Delusional Hallucination Type: Other (Remains internally stimulated) Delusion Type: Paranoid, Other (Capgras re: parents ongoing) Suicidal Ideation: No (Unreliable to contract for safety) Homicidal Ideation: No Insight: Poor Judgment: Poor Assessment and Plan - Assessment (1) Schizophrenia Code(s): F20.9 - Schizophrenia, unspecified Status: Acute - Plan Plan: Ongoing psychosis despite Consta. Augment Risperdal Consta with Haldol liquid 5mg PO BID with IM backup with plans to titrate to effect and as tolerated. Consider titrating the Haldol over the weekend to target ongoing psychotic symptoms. Ativan as needed for anxiety (E-FORCSE report reviewed) and Benadryl as needed for insomnia. Cogentin as needed for EPS. Continue to monitor on high acuity unit. Continue other meds and care as ordered. Justification for Continued Inpatient Stay: Medication changes. Impairment in reality construction. High risk for decompensation in less restrictive environment. Discharge Planning: Pending psychiatric stabilization. Request Healthcare Surrogate/Guardian Advocate?: Yes (1) Schizophrenia Qualifiers: Schizophrenia type: paranoid schizophrenia Qualified Code(s): F20.0 - Paranoid schizophrenia
[2018-07-02] MEDS ORDERED: Haloperidol Inj 5 MG/ML Ampul IM PRN (09:20)
[2018-07-02] MEDS ORDERED: LORazepam 1 MG Tablet PO PRN (09:20)
[2018-07-02] MEDS ORDERED: Benztropine Inj 2 MG/2 ML Ampul IM PRN (09:22)
[2018-07-02 09:30] LABS: Anion Gap 8 meq/L (5-15); Blood Urea Nitrogen 12 mg/dL (7-18); Calcium 9.1 mg/dL (8.5-10.1); Carbon Dioxide 27.4 meq/L (21.0-32.0); Chloride 104 meq/L (98-107); Glomerular Filtration Rate Greater Than 89 mL/min (>89); Glucose,Random 112 mg/dL (74-106); Magnesium 2.3 mg/dL (1.5-2.5); Potassium 3.8 meq/L (3.5-5.1); Sodium 139 meq/L (136-145)
[2018-07-02 09:31] LABS: Cholesterol 91 mg/dL (120-200); Triglycerides 57 mg/dL (42-150)
[2018-07-02 09:36] LABS: Chol/HDL Ratio 2.99 Ratio; HDL Cholesterol 30.4 mg/dL (40.0-60.0); LDL Cholesterol,Calculated 49 mg/dL (0-99)
[2018-07-02] MEDS: Haloperidol Lactate Oral Conc 10 MG/5 ML UDC PO SCH ×2 (12:05→20:07)
--- NOTE | 2018-07-02 12:31 | P.CONPSY ---
Provisional Diagnosis Admission Date: June 30, 2018 12:35 [place] I.: 1. Schizophrenia, paranoid type, acute exacerbation 2. Cannabis abuse [place] II.: Deferred History of Present Illness Service: Psychiatry Consult date: 07/02/18 Requesting Physician: Carlton Cornejo Reason for Consult: Second opinion petition supporting [facility] Primary Care Provider: No Primary Care Physician Family Provider: Jacky López MD History of Present Illness: Patient initially admitted to Dr. Carlton Cornejo service under the [place] act is H&P reviewed and agreed with. Dr. Cornejo assigned first opinion petition supporting [employer] act. Patient seen by me along with medical student Yris in his room. Patient laying quietly in bed though he is quite vigilant suspicious and paranoid. Morning when Dr. Cornejo will come and discharge him. He acknowledges multiple prior [place] acts in the past. At this time patient does meet criteria for acute inpatient psychiatric hospitalization under the [place] act thus I will cosign second opinion petition supporting [employer] act Review of Systems All other systems reviewed negative except as stated in HPI PMFSH - History History Provided By: Patient - Medical History Medical History: Medical History (Last Reviewed 07/02/18 @ 12:29 by Jacky Mcgrath MD) Bipolar disorder Schizophrenia - Surgical History Surgical History: Surgical History (Last Reviewed 07/02/18 @ 12:29 by Jacky Mcgrath MD) No history of previous surgery - Social History I have reviewed the patient's Social History: Yes - Tobacco History Second Hand Smoke Exposure: No Smoking Status: Never smoker - Alcohol History How Often Do You Have a Drink Containing Alcohol: Never - Substance Use History Substance History: Active Abuse - Substance Use Type Marijuana Status: Active Route Used: By Mouth Reason for Use: Get High Comment: Patient reports previous substance use, but "can't remember" any other substances he has used in the past other than marijuana. - Travel History Recent Travel in the [place] Within the Last 8 Weeks: No Recent Travel Out of the Country Within the Last 8 Weeks: No - Immunization History Tetanus Immunization: <5 Years Hx Influenza Vaccine This Season: No Medications and Allergies Active Medications: Active Medications Acetaminophen (Tylenol) 650 mg PO Q4H PRN PRN Reason: Pain 1-5 or Temp >101F Al Hydrox/Mg Hydrox/Simethicone (Mag-Al Plus Susp Liq) 30 ml PO Q6H PRN PRN Reason: DYSPEPSIA Al Hydroxide/Mg Hydroxide (Milk Of Magnalejandra Liq) 30 ml PO Q12H PRN PRN Reason: Mild Constipation Benztropine Mesylate (Cogentin) 1 mg PO Q12HR PRN PRN Reason: EXTRA PYRAMIDAL SYMPTOMS Benztropine Mesylate (Cogentin Inj) 1 mg IM Q12HR PRN PRN Reason: EPS, unable to take PO Diphenhydramine HCl (Benadryl) 50 mg PO HS PRN PRN Reason: INSOMNIA Haloperidol Lactate (Haldol Inj) 5 mg IM BID PRN PRN Reason: Refuses PO Haldol Haloperidol Lactate (Haldol Lactate Liq) 5 mg PO BID [facility] Last Admin: 07/02/18 12:05 Dose: 5 mg Lorazepam (Ativan) 1 mg PO Q6H PRN PRN Reason: MODERATE TO SEVERE ANXIETY Lorazepam (Ativan Inj) 1 mg IM Q6H PRN PRN Reason: MODERATE TO SEVERE ANXIETY Nicotine (Habitrol 21 Mg Patch.24 Hr) 1 patch T-DERMAL DAILY PRN PRN Reason: Nicotine craving Patch Removal (Remove Old Patch) 1 each T-DERMAL DAILY [facility] Allergies Allergy/AdvReac Type Severity Reaction Status Date / Time No Known Allergies AdvReac Unknown Uncoded 10/19/17 13:09 Home Medications Medication Instructions Recorded Confirmed Type risperidone microspheres 37.5 mg IM Q2W 06/29/18 06/29/18 History [Risperdal Consta] Exam Vital signs: Vital Signs 07/01/18 16:59 07/02/18 05:22 Temperature 98.3 F 97.9 F Pulse Rate 89 59 L Respiratory Rate 17 18 Blood Pressure 146/81 H 144/66 H Pulse Oximetry 98 99 Narrative: Patient laying quietly in his bed he is in no acute distress, he is in no respiratory distress, no complaints of chest pain or abdominal pain. Patient moving all 4 extremities without difficulty Mental Status Examination Appearance: Disheveled Consciousness: Alert, Vigilant Orientation: Person, Place (At least) Motor Activity: Normal gait Speech: Rapid Language: Other (Rambling) Fund of Knowledge: Inadequate Attention and Concentration: Inadequate Memory: Impaired (Psychosis interferes) Mood: Anxious, Irritable Affect: Irritable, Other (Dysphoric) Thought Process & Associations: Tangential Thought Content: Hallucinations, Delusional Hallucination Type: Other (Appears internally stimulated) Delusion Type: Paranoid, Other (Capgras re: parents) Suicidal Ideation: No Suicidal Plan: No Suicidal Intention: No Homicidal Ideation: No Homicidal Plan: No Homicidal Intention: No Insight: Poor Judgment: Poor Assessment and Plan - Assessment (1) Schizophrenia Code(s): F20.9 - Schizophrenia, unspecified Status: Acute - Plan Plan: At this time patient does meet criteria for acute inpatient psychiatric hospitalization, I will cosign second opinion petition supporting [place] act Justification for Continued Inpatient Stay: At this time patient would decompensate a place to a lower level of care Discharge Planning: To be determined Request Healthcare Surrogate/Guardian Advocate?: Yes (1) Schizophrenia Qualifiers: Schizophrenia type: paranoid schizophrenia Qualified Code(s): F20.0 - Paranoid schizophrenia
[2018-07-02] MEDS: Acetaminophen 325 MG Tablet PO PRN (12:51)
--- NOTE | 2018-07-02 13:49 | P.TTN ---
- Patient Problems Problems: 1. Discharge planning 2. Medication compliance 3. Knowledge deficit 4. Lack of coping skills - Progress Toward Goals Provider Present: Dr. Maryanne Cornejo (Patient remaining needs to remain for further stabilization. Patient presents with Capgras delusion.) Psychiatric Counselors Present: Lionel Mccartney Jr., GURINDER (Patient appears unstable, and either unable or unwilling to engage in treatment. Patient remains slightly disorganized and internally stimulated. Discharge disposition is that the patient will return to his home upon discharge.) Group Spec/RT/OT/LAU Present: TAY Meehan (Patient attends select groups and appears appropriate in groups.) - Documentation Teaching Recipient: Patient
[2018-07-02 14:55] LABS: Hemoglobin A1c 5.6 % (4.3-6.0)
[2018-07-03] MEDS: Haloperidol Lactate Oral Conc 10 MG/5 ML UDC PO SCH ×2 (08:43→20:15)
[2018-07-03] MEDS ORDERED: Haloperidol Inj 5 MG/ML Ampul IM PRN (15:51)
--- NOTE | 2018-07-03 18:45 | P.PNPSY ---
Subjective Chief Complaint: Psychosis Remarks: Reviewed electronic medical records and discussed case with staff. Follow-up was conducted in the hallway with ERLINDA Severino present. Staff reports the patient has been intrusive, disorganized, and observed laughing to himself throughout the day. Patient is discharged focused. He states that he is feeling better sleeping well and that his appetite is been good. Based on with the staff is reporting in the behaviors I observed in the hallway prior to speaking with him I have increased the patient's Haldol to [address] Cornejo suggestion. Mental Status Examination Appearance: Disheveled Consciousness: Alert, Vigilant Orientation: Person, Place (At least) Motor Activity: Normal gait, Other (No motor abnormalities noted) Speech: Rapid Language: Other (Rambling) Fund of Knowledge: Inadequate Attention and Concentration: Inadequate Memory: Impaired (Psychosis interferes) Mood: Anxious Affect: Flat Thought Process & Associations: Tangential Thought Content: Hallucinations, Delusional Hallucination Type: Other (Remains internally stimulated) Delusion Type: Paranoid, Other (Capgras re: parents ongoing) Suicidal Ideation: No (Unreliable to contract for safety) Suicidal Plan: No Suicidal Intention: No Homicidal Ideation: No Homicidal Plan: No Homicidal Intention: No Insight: Poor Judgment: Poor Assessment and Plan - Assessment (1) Schizophrenia Code(s): F20.9 - Schizophrenia, unspecified Status: Acute - Plan Plan: Patient will be reevaluated Thursday by the attending psychiatrist. Continue with current treatment plan. Patient's Haldol has been increased to 10 mg to target his symptoms. Justification for Continued Inpatient Stay: Moving this patient to a less restrictive environment would likely result in decompensation. Request Healthcare Surrogate/Guardian Advocate?: Yes (1) Schizophrenia Qualifiers: Schizophrenia type: paranoid schizophrenia Qualified Code(s): F20.0 - Paranoid schizophrenia
[2018-07-04] MEDS: Haloperidol Lactate Oral Conc 10 MG/5 ML UDC PO SCH ×2 (09:34→20:26)
--- NOTE | 2018-07-04 15:57 | P.PNPSY ---
Subjective Chief Complaint: Psychosis Remarks: Reviewed electronic medical records and discussed case with staff. Follow-up was conducted in the hallway with ERLINDA Wade present. The patient remains discharge focused as this provider immediately "can I be released today". There is reports that he is been needy but redirectable and has had no behavioral issues. Patient interacts appropriately throughout follow-up. There is no indication of internal stimulation or thought blocking. Mental Status Examination Appearance: Disheveled Consciousness: Alert, Vigilant Orientation: Person, Place (At least) Motor Activity: Normal gait, Other (No motor abnormalities noted) Speech: Rapid Language: Other (Rambling) Fund of Knowledge: Inadequate Attention and Concentration: Inadequate Memory: Impaired (Psychosis interferes) Mood: Anxious Affect: Flat Thought Process & Associations: Tangential Thought Content: Hallucinations, Delusional Hallucination Type: Other (Remains internally stimulated) Delusion Type: Paranoid, Other (Capgras re: parents ongoing) Suicidal Ideation: No (Unreliable to contract for safety) Suicidal Plan: No Suicidal Intention: No Homicidal Ideation: No Homicidal Plan: No Homicidal Intention: No Insight: Poor Judgment: Poor Assessment and Plan - Assessment (1) Schizophrenia Code(s): F20.9 - Schizophrenia, unspecified Status: Acute - Plan Plan: Patient will be reevaluated Thursday by the attending psychiatrist. Continue with current treatment plan. Justification for Continued Inpatient Stay: Moving this patient to a less restrictive environment would likely result in decompensation. Request Healthcare Surrogate/Guardian Advocate?: Yes (1) Schizophrenia Qualifiers: Schizophrenia type: paranoid schizophrenia Qualified Code(s): F20.0 - Paranoid schizophrenia
[2018-07-04] MEDS: Acetaminophen 325 MG Tablet PO PRN (17:49)
[2018-07-05] MEDS: Acetaminophen 325 MG Tablet PO PRN ×2 (01:05→13:59)
[2018-07-05 06:14] VITALS: TEMP 98.1
[2018-07-05] MEDS: Haloperidol Lactate Oral Conc 10 MG/5 ML UDC PO SCH ×2 (08:58→20:38)
--- NOTE | 2018-07-05 10:23 | P.PNPSY ---
Subjective Chief Complaint: Psychosis Remarks: Patient seen and examined with nurse. Chart reviewed. Case discussed with nursing staff. On my examination today, the patient presents as malodorous and somewhat disheveled. He is intrusive and focused on discharge. He does say today that his parents are probably his real parents and attributes his recent Capgras delusion to being "stressed out." He denies AVH presently but remains somewhat internally preoccupied. Denies SI or HI. Denies side effects from medications. No physical complaints. I spoke with patient's father/HCS today. He observes that the patient seems calmer in their telephone conversations, noting that anger had been a significant issue for the patient. However, parents have not been able to make a [id number] visit with patient, and we agree that this is a prudent step prior to discharge home with them given recent Capgras. Father will come this evening to visit with patient. Vital Signs Temp Pulse Resp BP Pulse Ox 07/05/18 06:00 98.1 F 79 17 138/70 98 07/04/18 18:26 98.5 F 77 17 127/69 98 Labs reviewed. No new labs. Review of Systems All other systems reviewed negative except as stated in HPI Mental Status Examination Appearance: Disheveled, Malodorous Consciousness: Alert, Vigilant Orientation: Person, Place (At least) Motor Activity: Normal gait, Other (No abnormal motor movements noted. No hand tremor, no cogwheeling, no dystonia, no dyskinesia, no other motor abnormalities noted.) Speech: Rapid Language: Other (Rambling) Fund of Knowledge: Inadequate Attention and Concentration: Inadequate Memory: Unremarkable Mood: Anxious Affect: Anxious Thought Process & Associations: Circumstantial Thought Content: Hallucinations, Preoccupations (With discharge) Hallucination Type: Other (Somewhat internally stimulated still) Delusion Type: None Suicidal Ideation: No Suicidal Plan: No Suicidal Intention: No Homicidal Ideation: No Homicidal Plan: No Homicidal Intention: No Insight: Poor Judgment: Poor Assessment and Plan - Assessment (1) Schizophrenia Code(s): F20.9 - Schizophrenia, unspecified Status: Acute - Plan Plan: It appears EPIC TRAINER had planned to titrate Haldol over weekend, but only the IM dose was increased. Since patient has been accepting p.o. meds, patient did not receive the increased dose. I will titrate Haldol to 7.5mg p.o. with IM backup to target residual psychotic symptoms. This supplements Consta administered prior to admission on 06/28. Continue to monitor on inpatient unit. Continue other meds and care as ordered. Justification for Continued Inpatient Stay: Impairment in reality construction. Med changes. High risk for decompensation in less restrictive environment. Discharge Planning: Pending outcome of visit with family, possible discharge tomorrow or middle of the week. Request Healthcare Surrogate/Guardian Advocate?: Yes (1) Schizophrenia Qualifiers: Schizophrenia type: paranoid schizophrenia Qualified Code(s): F20.0 - Paranoid schizophrenia
[2018-07-05] MEDS ORDERED: Haloperidol Inj 5 MG/ML Ampul IM PRN (13:12)
[2018-07-05 15:45] VITALS: O2SAT 100
[2018-07-06 05:59] VITALS: BP 131/74; PULSE 70; RESP 16
[2018-07-06] MEDS: Haloperidol Lactate Oral Conc 10 MG/5 ML UDC PO SCH (10:06)
[2018-07-06] MEDS: Acetaminophen 325 MG Tablet PO PRN (10:19)
--- NOTE | 2018-07-06 13:51 | P.DSPSY ---
Psychiatry Discharge Summary Inpatient Psychiatric care?: Yes Advance Directives: No Mental Health Advance Directive: No Health Care Proxy: No - Admission Admission Date: June 30, 2018 12:35 Brief History: Mr. Clark is a 23-year-old male with a history of psychotic illness who presented to the emergency department voluntarily for psychiatric evaluation. Patient was evaluated by the psychiatric nurse practitioner who obtained collateral information from the patient's parents. Patient was placed under the [place] act in the ED and admitted to the inpatient psychiatric unit for further stabilization. Reviewing the electronic medical record, I note the patient's most recent psychiatric hospitalization was under my care in 2015. He continued to see Dr. Barrera on an outpatient basis until at least September of this year and was on Risperdal Consta 37.5 mg IM at that time. Patient seen and examined with nurse. Chart reviewed. Case discussed with nursing staff. On my examination, patient presents as guarded and internally stimulated. He articulates a Capgras delusion regarding his parents. He also says "I can barely hear and see. I already." He is paranoid and believes people are talking about him. He believes that he is receiving threats through the TV. No affective symptoms. He is somewhat disheveled and his thought process is tangential. He does not verbalize any SI or HI. Psychiatric interview is somewhat limited because of the patient's degree of psychiatric impairment. No acute physical complaints. Following my departure from the unit, I was notified by the nurse that the patient was growing increasingly agitated and reportedly spit in the nurse's face. I have ordered patient medicated with Haldol, Ativan and Benadryl ETO. Past psychiatric history: The patient reports a history of schizophrenia/ bipolar disorder. He reportedly [facility] Per the psychiatric nurse practitioner's notes he just recently received his Risperdal Consta booster. Most recent psychiatric admission was reportedly here at [facility]. He denies a history of suicide attempts. Family history: The patient denies any family history of mental illness. Chemical dependency history: The patient reports that he smokes one half a pack a day of cigarettes. He also occasionally uses cannabis. He denies any abuse of cocaine, benzodiazepines or other substances. Social history: The patient resides with his family. He says "I thought they were my family anyway." He reports that he attends college through [employer] over the Internet. He is single with no children. He does have a pet dog by the name of Chema. He denies any history. Denies any legal history. Denies any access to guns or firearms. He is a [employer]. When I ask about a history of abuse or mistreatment he says only "I do not want to talk about it." No PTSD symptoms reported. I did endeavor to reach out to patient's father and mother at the number listed in the electronic medical record. Unfortunately, I was unable to reach them, and the voice mailbox is not presently accepting voicemails. Tobacco Use In Past 30 Days: Yes How Often Do You Have a Drink Containing Alcohol: Never Hospital Course: Patient was admitted to a locked psychiatric unit. All safety precautions were maintained throughout his visit. He was followed on a daily basis by psychiatric providers as well as being seen by counselors. Upon his arrival he presented as quite paranoid and disorganized with active hallucinations in spite of a recent injection of Risperdal Consta. His attending psychiatrist augmented this injection with Haldol 5 mg that was eventually titrated to 7.5 mg at an effort to target his residual schizophrenic symptoms. Patient has responded well to this therapy and staff are reporting that he has had no behavioral disturbances. Upon examination today, I find the patient walking in the hallways alert and oriented x4. His speech is clear, logical, organized. He denies any suicidal or homicidal ideation having auditory or visual hallucinations. He states that his visit went well with his parents and he is looking forward to going home. I was presented earlier with a hand written note from his father stating that he felt he was safe to come home. The counselor, Lionel, has spoken to the family who corroborate this. Patient does not appear to be an eminent danger to himself or others at this time. Therefore , at this time I believe the patient has reached maximum therapeutic benefit from this inpatient admission. He is being discharged with a prescription for the Haldol and should continue as scheduled with the constant injections to [facility]. If his condition decompensates at any time he has been advised that he should return to this facility for stabilization. - Discharge Discharge Date: 07/06/18 - Discharge Diagnosis (1) Schizophrenia Code(s): F20.9 - Schizophrenia, unspecified Status: Acute Discharge Disposition: Home - Discharge Instructions Discharge Diet: Regular Diet Activities You Can Perform: Regular- No Restrictions - Discharge Time > 30 minutes Mental Status Examination Appearance: Disheveled Consciousness: Alert Orientation: x4 Motor Activity: Normal gait, Other (No abnormal motor movements noted. No hand tremor, no cogwheeling, no dystonia, no dyskinesia, no other motor abnormalities noted.) Speech: Unremarkable Language: Adequate Fund of Knowledge: Adequate Attention and Concentration: Adequate Memory: Unremarkable Mood: Appropriate, Good Affect: Appropriate, Euthymic Thought Process & Associations: Intact Thought Content: Appropriate Hallucination Type: None Delusion Type: None Suicidal Ideation: No Suicidal Plan: No Suicidal Intention: No Homicidal Ideation: No Homicidal Plan: No Homicidal Intention: No Insight: Adequate Judgment: Adequate Discharge/Advance Care Plan - Results Vital Signs: Last Vital Signs Temp 98.1 F 07/05/18 15:44 Pulse 70 07/06/18 05:58 Resp 16 07/06/18 05:58 BP 131/74 07/06/18 05:58 Pulse Ox 100 07/06/18 05:58 Lab Results: Laboratory Results Hemoglobin A1c 5.6 % (4.3-6.0) 07/02/18 08:09 Triglycerides 57 mg/dL (42-150) 07/02/18 08:09 Cholesterol 91 mg/dL (120-200) L 07/02/18 08:09 LDL Cholesterol, Calc 49 mg/dL (0-99) 07/02/18 08:09 HDL Cholesterol 30.4 mg/dL (40.0-60.0) L 07/02/18 08:09 TSH 0.581 uIU/mL (0.358-3.740) 06/29/18 20:15 Urine Culture Comments Culture not ind 06/29/18 15:10 Summary of Procedures: None Pending Results: None - Medications Number of antipsychotic medications at discharge: 2 Appropriate use of more than 1 antipsychotic med: Minimum of three failed multiple trials of monotherapy - Discharge Care Plan Goals to Promote Your Health: * To prevent worsening of your condition and complications * To maintain your health at the optimal level Directions to Meet Your Goals: Take your medications as prescribed Follow your dietary instruction Follow activity as directed Keep your appointments as scheduled Take your immunizations and boosters as scheduled If your symptoms worsen call your PCP, if no PCP go to Urgent Care Center or Emergency Room For 20/04 questions related to your inpatient stay or results of tests pending at discharge, please contact DAVID Araiza at Smoking is Dangerous to Your Health. Avoid second hand smoking (1) Schizophrenia Qualifiers: Schizophrenia type: paranoid schizophrenia Qualified Code(s): F20.0 - Paranoid schizophrenia
== END 2018-07-06 15:00 | disposition home or self-care (01) ==
LOC: NEPJ 14:24 → NEDA 06-30 12:35 → H270 06-30 14:26
PROVIDERS: ADMIT Psychiatry & Neurology Psychiatry; ATTEND Psychiatry & Neurology Psychiatry